=== PATIENT | female | born 2000 | race Caucasian/White ===

== ENCOUNTER 2019-05-26 17:43 | Observation (INO) | payer OTHER ==
[2019-05-26] MEDS ORDERED: IV RINGERS,LACTATED 1000ML 1,000 ML IV PRN (18:00)
--- NOTE | 2019-05-26 18:47 | RAD ---
Exam: Ultrasound OB limited Indication: Fall Technique: Real-time grayscale and color Doppler images of the pelvis were obtained by the department lpn or medical assistant. Comparisons: None FINDINGS: Cervix is not well visualized. Placenta is posterior in location and appears normal. Single live intrauterine gestation with heart rate measured at 145 bpm. Measurements as follows: BPD: 5.7 cm responding to 23 weeks 4 days HC: 20.8 cm corresponding to 23 weeks 0 days AC: 18.3 cm corresponding to 23 weeks 1 day FL: 4.0 cm corresponding to 23 weeks 0 days Estimated weight 564 g. DEON 11.2 IMPRESSION: 1. Single live intrauterine gestation with measurements as described above. 2. DEON 11.2 3. Cervix not visualized 4. Placenta appears normal. Electronically signed by: Alvarez Chavarria MD (05/26/2019 6:44 PM) [id number]
[2019-05-26 19:06] LABS: BILIRUBIN,URINE NEGATIVE (NEG); CLARITY,URINE CLEAR; COLOR,URINE YELLOW; NITRITE,URINE NEGATIVE (NEG); PROTEIN,URINE NEGATIVE (NEG-TRACE); UROBILINOGEN,URINE 0.2 mg/dL (0.2 mg/dL)
[2019-05-26 19:14] LABS: BACTERIA,URINE 0 /HPF (0-FEW); RBC,URINE 0 /HPF (0-2); SQUAMOUS EPITHELIAL CELL,UR FEW /LPF; WBC,URINE 0 /HPF (0-4)
== END 2019-05-26 19:59 | disposition home or self-care (01) ==
LOC: 3 SO LND 17:43
PROVIDERS: ADMIT Obstetrics & Gynecology; ATTEND Obstetrics & Gynecology
DX: O36.8120 Decreased fetal movements, second trimester, not applicable or unspecified (principal); O26.892 Other specified pregnancy related conditions, second trimester; G43.909 Migraine, unspecified, not intractable, without status migrainosus; Z3A.24 24 weeks gestation of pregnancy; R10.30 Lower abdominal pain, unspecified
CPT/HCPCS: 76815; 81001; G0378; G0379